=== PATIENT | female | born 1945 | race Caucasian/White ===

== ENCOUNTER 2020-09-29 09:29 | Observation (INO) | payer MEDICARE ==
[~2020-09-29] VITALS: Ht 170.2 cm; Wt 104.0 kg
--- NOTE | 2020-09-29 09:35 | NUR ---
PT TO ROOM 15 BEDSIDE TRIAGE COMPLETED
[2020-09-29 09:59] LABS: HEMATOCRIT 42.1 % (37.0-47.0); HEMOGLOBIN 13.7 g/dl (12.0-16.0); IMMATURE GRANULOCYTES 0.2 % (0.0-5.0); MEAN CELL VOLUME 96.1 fL CALC (80.0-100.0); MEAN CORPUSCULAR HGB 31.3 pG CALC (26.0-32.0); MEAN CORPUSCULAR HGB CONC 32.5 g/dL CAL (32.0-36.0); NEUT# 2.35 thou/uL (2.00-7.15); RED BLOOD COUNT 4.38 mill/uL (4.20-5.60); RED CELL DISTRI WIDTH 12.2 % (11.5-15.5)
--- NOTE | 2020-09-29 10:00 | NUR ---
asa ordered, patient has allergy. Advised to hold aspirin [address] Appiah per
[2020-09-29 10:21] LABS: CREATININE 1.1 mg/dL (0.5-1.0)
--- NOTE | 2020-09-29 10:41 | NUR ---
PATIENT TO CT STATED SHE HAD ANAPHALAXIS A RESULT OF THE CT CONSTRAST WITH LAST CT SCAN. DR LEI, SCREENING WITH CONTRAST CANCELLED.
[2020-09-29] MEDS ORDERED: XANAX1 MG PO (11:28)
--- NOTE | 2020-09-29 11:28 | NUR ---
PHYSICIAN AT [facility] TO DISCUSS FINDINGS AND PLAN OF CARE.
--- NOTE | 2020-09-29 12:29 | NUR ---
PATIENT AWARE OF IMPENDING ADMISSION. STABLE. CALL OLMOS AVAILABLE
--- NOTE | 2020-09-29 12:57 | NUR ---
PATIENT RESTING QUIETLY. CALL OLMOS IN REACH.
--- NOTE | 2020-09-29 14:19 | NUR ---
report to nurse Maddy in SBAR format.
--- NOTE | 2020-09-29 14:22 | NUR ---
patient transferred to [facility] ROOM 270 VIA STRETCHER. STABLE UPON ARRIVAL. IV INTACT
[2020-09-29 14:30] VITALS: BP 158/93
--- NOTE | 2020-09-29 14:30 | NUR ---
RECIEVED PATIENT FROM ED AT THIS TIME. PATIENT IS ALERT AND ORIENTED AT THIS TIME. 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 PATIENT HAS HAD PREVIOUS CATARAC SURGERY. 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 PATIENT STATES HER PAIN IS A 4 AND IT IS GENERALIZED. PATIENT STATED HER "ANXIETY" DRIVES HER PAIN AT TIMES". PATIENT GIVEN VERBAL QUES OF RELAXATIONS AND VERBALIZED UNDERSTANDING ON THEM. PATIENT WAS ORIENTED TO ROOM AND SURROUNDINGS AND TO SAFETY POLICY. OPHTHALMIC LENS INSPECTOR DONE AT THIS TIME. LUNG SOUNDS ARE CLEAR IN ALL LUNG RUSSO, BILATERAL TRACE ANKLE SWELLING NOTED AT THIS TIME. PATIENT HAS BOWEL SOUNDS AND STATES SHE HAD A BOWEL MOVEMENT PRIOR TO COMING INTO THE HOSPITAL. PATIENT DOES WEAR GLASSES AND DOES HAVE HER PURSE AND CELL PHONE WITHIN REACH. SIDERAILS ARE UP X 2 CALL LIGHT WITHIN REACH.
--- NOTE | 2020-09-29 16:01 | NUR ---
PATIENT RESTING COMFORTABLE IN BED AT THIS TIME. PATIENT DENEIS ANY NEEDS AND STATES HER PAIN HAS SUBSIDED AT THIS TIME. SIDERAILS ARE UP X 2 AND CALL LIGHT IS WITHIN REACH WELL HER PERSONAL ITEMS.
--- NOTE | 2020-09-29 18:48 | NUR ---
PATIENT ASKED IF SHE COULD BE DISCHARGE TONIGHT AND IT WAS EXPLAINED THAT DUE TO HER ADMITTING DIAGNOSIS OF CHEST PAIN AND THE IMPORTANCE OF BEING WATCH THE PHYSICIAN WOULD NOT D/C HER TONIGHT AND IF SHE WANTED TO LEAVE SHE WOULD HAVE TO SIGN OUT AGAINST MEDICAL ADVISE. PATIENT STATED WELL I CAN LAY IN MY OWN BED TONIGHT INSTEAD OF HERE. THIS NURSE EDUCATED PATIENT ON IMPORTANCE OF BEING CLOSELY MONITORED DUE TO HER ADMITTING DIAGNOSIS AND SHE STATED WELL "I CAN DO THIS AT HOME I AM OKAY". PATIENT THEN TOLD ME SHE WOULD CALL HER DAUGHTER AND WILL LET ME KNOW IF SHE DECIDES TO LEAVE AMA.
[2020-09-29 19:00] VITALS: BP 129/62
--- NOTE | 2020-09-29 20:20 | NUR ---
PHYSICAL ASSESMENT COMPLETE. PT CURRENTLY DENIES PAIN OR DISCOMFORT. SCHEDULED MEDICATIONS AND PRN MEDICATION ADMINISTERED, SEE E-MAR. PT DENIES ANY NEEDS AT THIS TIME. PLAN OF CARE REVIEWED, PT DENIES QUESTIONS, VERBALIZES UNDERSTANDING. ITEMS WITHIN REACH, BED LOCKED IN LOW POSITION W/ BEDRAILS UP X2. CALL OLMOS WITHIN REACH, AGREES TO CALL PRN.
[2020-09-30] VITALS: BP 87/52
--- NOTE | 2020-09-30 00:53 | NUR ---
PT LAYING IN BED WITH EYES CLOSED, APPEARS TO BE SLEEPING, APPEARS COMFORTABLE AND IN NO DISTRESS. RESPIRATIONS REGULAR AND UNLABORED. ITEMS REMAIN WITHIN REACH, CALL OLMOS REMAINS WITHIN REACH. BED REMAINS LOCKED AND IN LOW POSITION WITH BEDRAILS UP X2. WILL CONTINUE TO MONITOR.
[2020-09-30 04:00] VITALS: BP 94/53
--- NOTE | 2020-09-30 06:01 | NUR ---
PT RESTING IN BED, NO SIGNS OF DISTRESS NOTED, RESP EVEN AND UNLABORED. PT VOICES NO NEEDS OR COMPLAINTS AT THIS TIME. CALL LIGHT IN REACH, CONTINUE TO MONITOR.
[2020-09-30 06:22] LABS: HEMATOCRIT 37.3 % (37.0-47.0); IMMATURE GRANULOCYTES 0.2 % (0.0-5.0); MEAN CELL VOLUME 96.6 fL CALC (80.0-100.0); MEAN CORPUSCULAR HGB 31.1 pG CALC (26.0-32.0); MEAN CORPUSCULAR HGB CONC 32.2 g/dL CAL (32.0-36.0); NEUT# 1.45 thou/uL (2.00-7.15); RED BLOOD COUNT 3.86 mill/uL (4.20-5.60); RED CELL DISTRI WIDTH 12.3 % (11.5-15.5)
[2020-09-30 06:40] LABS: ALBUMIN 3.4 g/dL (3.2-5.0); ALKALINE PHOSPHATASE 52 u/l (38-126); ANION GAP 9 (6-22 (CALC)); BILIRUBIN, TOTAL 0.6 mg/dL (0.0-1.4); BUN 13 mg/dL (8-23); BUN/CREATININE RATIO 13 (12-20 (CALC)); CALCULATED LDLCHOLESTEROL 77 mg/dL (62-129 (CALC)); CARBON DIOXIDE 27 mmol/l (22-30); CHLORIDE 105 mmol/l (95-108); CHOLESTEROL HDL RATIO 2.4 (<4.4 (CALC)); GFR 54 ML/MIN (>=60 (CALC)); GFR FOR AFR.AMER. > 60 ML/MIN (>=60 (CALC)); HDL CHOLESTEROL 73 mg/dL (>=40); MAGNESIUM 2.1 mg/dL (1.6-2.3); POTASSIUM 4.2 mmol/l (3.5-5.1); SGOT/AST 21 u/l (9-36); SODIUM 136 mmol/l (137-146); TOTAL CHOLESTEROL 174 mg/dl (0-199); TOTAL PROTEIN 5.6 g/dL (6.3-8.2); TOTAL TRIGLYCERIDES 121 mg/dl (30-149); VLDL CHOLESTROL 24 mg/dl (0-48 (CALC))
[2020-09-30 07:15] VITALS: BP 111/60
--- NOTE | 2020-09-30 08:00 | NUR ---
PT RESTING IN THE BED AXOX3, IV INFUSING. DENIES CP AT THIS TIME. STATES SHE HAS A HIATAL HERNIA. REPOSITIONED FOR COMFORT, SIDE RAILS UP CALL LIGHT IN REACH, BED LOCKED IN LOW POSITION, ALL SAFTY MEASURES IN PLACE. WILL CONTINUE TO MONITOR THE PATIENT.
--- NOTE | 2020-09-30 08:40 | NUR ---
C/O ANXITY , MED PER ORDER, WILL CONTINUE TO MONIOTR THE PATIENT.
[2020-09-30] MEDS ORDERED: PANTOPRAZOLE SO40 M1 PO (09:44)
--- NOTE | 2020-09-30 11:07 | NUR ---
PT IS DISCHARGED TO HER OWN HOME. IV REMOVED. DISCHARGE ORDERS GIVEN UNDERSTOOD AND SIGNED BY THE PATIENT. PT IS GOING TO HER OWN HOME. PT CALLED FOR A TAXI TO MEET HER AT THE ENTRANCE DOWN STAIRS.
== END 2020-09-30 11:05 | disposition home or self-care (01) ==
LOC: ED 09:29 → ED-I 11:26 → ED 11:37 → MS2 11:38
PROVIDERS: Family Medicine; Nurse Practitioner; ADMIT Internal Medicine; ATTEND Internal Medicine
DX: K44.9 Diaphragmatic hernia without obstruction or gangrene (principal); F41.9 Anxiety disorder, unspecified; Z88.6 Allergy status to analgesic agent; Z91.041 Radiographic dye allergy status; Z86.73 Personal history of transient ischemic attack (TIA), and cerebral infarction without residual deficits; Z20.822 Contact with and (suspected) exposure to COVID-19
CPT/HCPCS: J1650; S0164

== ENCOUNTER 2020-12-05 16:29 | Emergency (ER) | payer MEDICARE ==
[~2020-12-05] VITALS: Ht 170.2 cm; Wt 95.0 kg
[~2020-12-05 16:29] MED LIST: PANTOPRAZOLE SO40 M1 PO; XANAX1 MG PO
[2020-12-05 17:22] LABS: HEMOGLOBIN 13.4 g/dl (12.0-16.0); IMMATURE GRANULOCYTES 0.1 % (0.0-5.0); MEAN CELL VOLUME 93.4 fL CALC (80.0-100.0); MEAN CORPUSCULAR HGB 30.5 pG CALC (26.0-32.0); MEAN CORPUSCULAR HGB CONC 32.7 g/dL CAL (32.0-36.0); NEUT# 4.14 thou/uL (2.00-7.15); RED BLOOD COUNT 4.39 mill/uL (4.20-5.60); RED CELL DISTRI WIDTH 11.9 % (11.5-15.5)
[2020-12-05 17:33] LABS: ALKALINE PHOSPHATASE 69 u/l (38-126); AMYLASE 72 u/l (30-110); ANION GAP 11 (6-22 (CALC)); BILIRUBIN, TOTAL 0.5 mg/dL (0.0-1.4); BUN 19 mg/dL (8-23); BUN/CREATININE RATIO 15 (12-20 (CALC)); CARBON DIOXIDE 29 mmol/l (22-30); CHLORIDE 99 mmol/l (95-108); CREATININE 1.3 mg/dL (0.5-1.0); GFR 40 ML/MIN (>=60 (CALC)); GFR FOR AFR.AMER. 48 ML/MIN (>=60 (CALC)); LIPASE 157 u/l (23-300); POTASSIUM 4.2 mmol/l (3.5-5.1); SGOT/AST 23 u/l (9-36); SODIUM 134 mmol/l (137-146)
[2020-12-05 17:36] LABS: ALBUMIN 4.5 g/dL (3.2-5.0); TOTAL PROTEIN 7.5 g/dL (6.3-8.2)
[2020-12-05 17:44] LABS: MYOGLOBIN 87 ng/mL (0 - 62)
[2020-12-05 19:00] LABS: URINE BILIRUBIN - DIPSTICK NEGATIVE (NEGATIVE); URINE BLOOD DIPSTICK NEGATIVE (NEGATIVE); URINE COLOR YELLOW; URINE GLUCOSE - DIPSTICK NEGATIVE (NEGATIVE); URINE KETONE NEGATIVE (NEGATIVE); URINE LEUK ESTERASE NEGATIVE (NEGATIVE); URINE PH 5.5 (4.5-8.0); URINE PROTEIN - DIPSTICK NEGATIVE (NEG-TRACE); URINE UROBILINOGEN - DIPSTICK 0.2 E.U./dL (0.2)
[2020-12-05] MEDS ORDERED: PREVACID30 M3 PO (19:07)
[2020-12-05] MEDS ORDERED: ONDANSETRON4 MG PO (19:07)
[2020-12-05 19:08] LABS: URINE NITRITE - DIPSTICK NEGATIVE (Negative)
[2020-12-05 19:34] VITALS: BP 130/68
== END 2020-12-05 19:45 | disposition home or self-care (01) ==
LOC: ED 16:29
PROVIDERS: Emergency Medicine
DX: K52.9 Noninfective gastroenteritis and colitis, unspecified (principal); Z86.73 Personal history of transient ischemic attack (TIA), and cerebral infarction without residual deficits; Z20.822 Contact with and (suspected) exposure to COVID-19
CPT/HCPCS: S0164

== ENCOUNTER 2021-08-20 16:22 | Emergency (ER) | payer MEDICARE ==
[~2021-08-20] VITALS: Ht 175.3 cm; Wt 79.0 kg
[~2021-08-20 16:22] MED LIST changes: +CHOLESTYRAMINE4 G1 PO; +ONDANSETRON4 MG PO; +PREVACID30 M3 PO; +PROTONIX40 M2 PO
[2021-08-20 17:27] LABS: HEMATOCRIT 41.7 % (37.0-47.0); HEMOGLOBIN 13.6 g/dl (12.0-16.0); IMMATURE GRANULOCYTES 0.1 % (0.0-5.0); MEAN CELL VOLUME 95.9 fL CALC (80.0-100.0); MEAN CORPUSCULAR HGB 31.3 pG CALC (26.0-32.0); MEAN CORPUSCULAR HGB CONC 32.6 g/dL CAL (32.0-36.0); NEUT# 3.92 thou/uL (2.00-7.15); RED BLOOD COUNT 4.35 mill/uL (4.20-5.60); RED CELL DISTRI WIDTH 13.2 % (11.5-15.5)
[2021-08-20 17:43] LABS: ALBUMIN 4.4 g/dL (3.2-5.0); ALKALINE PHOSPHATASE 92 u/l (38-126); ANION GAP 13 (6-22 (CALC)); BILIRUBIN, TOTAL 0.5 mg/dL (0.0-1.4); BUN 17 mg/dL (8-23); BUN/CREATININE RATIO 16 (12-20 (CALC)); CARBON DIOXIDE 26 mmol/l (22-30); CHLORIDE 103 mmol/l (95-108); CREATININE 1.1 mg/dL (0.5-1.0); GFR 48 ML/MIN (>=60 (CALC)); GFR FOR AFR.AMER. 58 ML/MIN (>=60 (CALC)); POTASSIUM 4.1 mmol/l (3.5-5.1); SGOT/AST 24 u/l (9-36); SODIUM 138 mmol/l (137-146); TOTAL PROTEIN 7.2 g/dL (6.3-8.2)
[2021-08-20 18:41] VITALS: BP 132/73
== END 2021-08-20 18:40 | disposition left against medical advice (07) ==
LOC: ED 16:22 → ED-I 18:00 → ED 18:40
PROVIDERS: Family Medicine
DX: R07.9 Chest pain, unspecified (principal); Z86.73 Personal history of transient ischemic attack (TIA), and cerebral infarction without residual deficits; Z88.6 Allergy status to analgesic agent; Z20.822 Contact with and (suspected) exposure to COVID-19; Z91.19 Patient's noncompliance with other medical treatment and regimen

== ENCOUNTER 2023-07-04 09:56 | Emergency (ER) | payer MEDICARE, MEDICAID ==
[~2023-07-04] VITALS: Ht 175.3 cm; Wt 74.0 kg
[2023-07-04 10:06] VITALS: BP 149/57
[2023-07-04 10:16] VITALS: BP 141/71
[2023-07-04 10:30] LABS: BASO% 0.5 % (0-3); EOS% 3.1 % (0-8); HEMATOCRIT 38.1 % (37.0-47.0); HEMOGLOBIN 12.6 g/dl (12.0-16.0); IMMATURE GRANULOCYTES 0.2 % (0.0-5.0); LYMPH% 31.5 % (15-41); MEAN CELL VOLUME 95.3 fL CALC (80.0-100.0); MEAN CORPUSCULAR HGB 31.5 pG CALC (26.0-32.0); MEAN CORPUSCULAR HGB CONC 33.1 g/dL CAL (32.0-36.0); MONO% 12.9 % (2-13); NEUT# 2.21 thou/uL (2.00-7.15); NEUT% 51.8 % (42-76); RED CELL DISTRI WIDTH 11.6 % (11.5-15.5)
[2023-07-04 10:44] LABS: ALBUMIN 4.4 g/dL (3.2-5.0); ALKALINE PHOSPHATASE 58 u/l (38-126); ANION GAP 12 (6-22 (CALC)); BUN 15 mg/dL (8-23); BUN/CREATININE RATIO 18 (12-20 (CALC)); CARBON DIOXIDE 24 mmol/l (22-30); CHLORIDE 102 mmol/l (95-108); CREATININE 0.9 mg/dL (0.5-1.0); GFR FOR AFR.AMER. > 60 ML/MIN (>=60 (CALC)); GFR OTHER RACES > 60 ML/MIN (>=60 (CALC)); POTASSIUM 4.2 mmol/l (3.5-5.1); SGOT/AST 33 u/l (9-36); SODIUM 134 mmol/l (137-146); TOTAL PROTEIN 6.8 g/dL (6.3-8.2)
[2023-07-04 10:46] LABS: BILIRUBIN, TOTAL 0.6 mg/dL (0.02-1.3)
[2023-07-04 11:15] VITALS: BP 158/81
[2023-07-04 11:28] LABS: URINE BILIRUBIN - DIPSTICK Negative (NEGATIVE); URINE BLOOD DIPSTICK Negative (NEGATIVE); URINE GLUCOSE - DIPSTICK Negative (NEGATIVE); URINE KETONE Negative (NEGATIVE); URINE LEUK ESTERASE Negative (NEGATIVE); URINE NITRITE - DIPSTICK Negative (Negative); URINE PROTEIN - DIPSTICK Negative (NEG-TRACE); URINE UROBILINOGEN - DIPSTICK 0.2 E.U./dL (0.2)
[2023-07-04 11:29] LABS: URINE COLOR Yellow
[2023-07-04 11:30] VITALS: BP 151/113
[2023-07-04] MEDS ORDERED: NAPROXEN500 MG PO (12:51)
[2023-07-04 13:01] VITALS: BP 158/81
== END 2023-07-04 13:07 | disposition home or self-care (01) ==
LOC: ED 09:56
PROVIDERS: Family Medicine
DX: M54.2 Cervicalgia (principal); M54.6 Pain in thoracic spine; R07.81 Pleurodynia; M19.90 Unspecified osteoarthritis, unspecified site; Z86.73 Personal history of transient ischemic attack (TIA), and cerebral infarction without residual deficits; R42 Dizziness and giddiness